=== PATIENT | female | born 1990 | race Caucasian/White ===

== ENCOUNTER 2021-06-03 07:47 | Emergency (ER) | payer OTHER, SELFPAY ==
[2021-06-03 07:54] VITALS: BP 136/79; PULSE 84; RESP 18; TEMP 36.5; O2SAT 100
--- NOTE | 2021-06-03 08:10 | ED.GENADUL_ITS ---
Discharge Plan Disposition Patient Disposition: HOME Condition: Stable Discharge Details Clinical Impression: Laceration of left thigh Primary Care Provider: Unknown,Unknown ED Provider: Manjit Jeffries Home Meds and New Rx's Prescriptions: No Action No Known Home Meds RF: 0 Discharge Instructions Instructions: Laceration (ED) Additional Instructions: Keep wound dressing clean, dry, and intact. Remove dressing in 2 days and examine wound. Change dressing daily thereafter. Be sure to use sterile dressing materials. Monitor for signs of infection including increased warmth, swelling, discharge, drainage, or increasing redness. Please contact your primary care physician to arrange follow-up. Return to the ED or see your doctor for suture removal in 12 days. Return to the ER immediately for any worsening or new concerning symptoms. Medical Decision Making 30-year-old female here with complex laceration left anterior medial thigh. Patient is neurovascular intact distally. Tetanus is up-to-date. Wound was anesthetized with topical lidocaine and local injection of bupivacaine. Wound was explored and does extend deep into adipose tissue, underlying fascia intact. Primary closure was performed without complication, please see procedure note - unable to significantly revise wound margins given tension/lack of tissue. Usual customary discharge instructions were reviewed with the patient. HPI General Mode of arrival: ambulatory . Date/Time Provider Initiated Documentation: 06/03/21 08:04 . Limitations to Documentation: no limitations . Information obtained by: patient . HPI Narrative: 30-year-old female presents after sustaining laceration to her left thigh with chief complaint of laceration. Patient notes that she was preparing for dog sled and dogs broke loose and she jumped on the sled and somehow lacerated her thigh on metal hook that is used to secure dogs. Hook is relatively new and clean. Hook is fully intact. Wound was initially bleeding and bleeding has stopped. Wound is severe. No modifiers. No associated numbness tingling or weakness. The patie nt was able to ambulate without any difficulty after injury. This injury occurred this morning. No other injury sustained. Related Data Home Medications Medication Instructions Recorded Confirmed Unknown [No Known Home Meds] 06/03/21 06/03/21 Allergies Allergy/AdvReac Type Severity Reaction Status Date / Time No Known Allergies Allergy Unverified 06/03/21 08:00 General Stated Complaint: Laceration CECI: 3 Review of Systems Musculoskeletal Musculoskeletal: Denies numbness Integumentary/Breasts Skin/Breast: Reports as per HPI Neurologic Neurologic: Denies numbness PFSH All Active Problems Laceration of left thigh (Acute) Social History Smoking/Tobacco Use Status: Never Smoking risk assessment performed?: Yes Alcohol Intake: current Alcohol Intake frequency: a few times a week Drug use: Never Substance use type: does not use Do you feel safe at home: Yes Do you feel safe in your relationship?: Yes Exam Const General: cooperative and no acute distress Skin Trauma: laceration (complex flap left anterior medial thigh) Extrem Left lower extremity: hip/thigh Details: laceration and other (Normal range of motion, extensor tendon function intact), knee Details: normal to inspection and lower leg Details: normal to inspection Course Vital Signs Vital signs: Vital Signs Temperature 36.5 C 06/03/21 07:54 Pulse 84 06/03/21 07:54 Respiratory Rate 18 06/03/21 07:54 Blood Pressure 136/79 06/03/21 07:54 Pulse Oximetry 100 06/03/21 07:54 Temperature 36.5 C 06/03/21 07:54 Temperature Source Temporal Artery Scan 06/03/21 07:54 Pulse 84 06/03/21 07:54 Respiratory Rate 18 06/03/21 07:54 Respiratory Effort Non-Labored 06/03/21 08:01 Blood Pressure 136/79 06/03/21 07:54 Blood Pressure Position Sitting 06/03/21 07:54 Pulse Oximetry 100 06/03/21 07:54 Oxygen Delivery Method Room Air 06/03/21 07:54 Oxygen Flow Rate 0 06/03/21 07:54 Pain Level 0 06/03/21 07:54 Procedures Laceration Laceration 1: Site: lower extremity Side (If applicable): left Size (cm): 15 Description: stellate and flap Depth: simple, single layer Local Anesthetic: Bupivicaine 0.5% Amount of anesthesia used (mL): 10 Pre-repair: wound explored, irrigated extensively and deep structures intact Skin layer closed with: nylon Size (cm): 4-0 Number of sutures: 19 Technique: simple, interrupted and horizontal mattress PAWSS Have you Been Recently Intoxicated or Drunk Within the Last 30 days?: No Have you Ever Experienced Previous Episodes of Alcohol Withdrawal?: No Have you ever Experienced Withdrawal Seizures?: No Have you ever Experienced Delirium Tremens(DT)s?: No Have you ever undergone Alcohol Rehabilitation Treatment (i.e, inpt ot outpatient treatment programs)?: No Have you ever Experienced Blackouts?: No Have you ever Combined Alcohol with other Downers within the last 90 days?: No Have you ever Combined Alcohol with any other Substance of Abuse during the last 90 days?: No Positive Blood Alcohol level on Presentation? [PCS.BAL]: No Evidence of Increased Autonomic Activity (i.e. HR>120, tremor, sweating, agitation, nausea)?: No Result: 0
[2021-06-03] MEDS: Lidocaine/Epinephri/Tetracaine Topical Gel 3 ML TP (08:18)
[2021-06-03] MEDS: Lidocaine/Epinephri/Tetracaine Topical Gel 3 ML (08:18)
[2021-06-03] MEDS: Bupivacaine 0.5% Pres-Free 30 ML VIAL IJ (08:21)
[2021-06-03 09:54] VITALS: BP 127/54; PULSE 74; RESP 16; O2SAT 96
== END 2021-06-03 09:55 | disposition home or self-care (01) ==
PROVIDERS: Emergency Provider Student in an Organized Health Care Education/Training Program
DX: S71.112A Laceration without foreign body, left thigh, initial encounter (principal); W26.8XXA Contact with other sharp object(s), not elsewhere classified, initial encounter
CPT/HCPCS: 12005

== ENCOUNTER 2021-06-15 10:57 | Emergency (ER) | payer OTHER, SELFPAY ==
[2021-06-15 11:02] VITALS: BP 120/69; PULSE 76; RESP 14; TEMP 37.1; O2SAT 100
--- NOTE | 2021-06-15 12:09 | ED.GENADUL_ITS ---
Discharge Plan Disposition Patient Disposition: HOME Discharge Details Clinical Impression: Visit for wound check Primary Care Provider: Unknown,Unknown ED Provider: Nessa Jeffries Home Meds and New Rx's Prescriptions: No Action No Known Home Meds RF: 0 Discharge Instructions Instructions: Laceration (ED) Additional Instructions: Please return immediately to the emergency department if you develop any new or worsening symptoms, if your condition does not improve as expected, or if you become otherwise concerned. It is extremely important that you return here in 2 days, 06/17/2021, for removal of your sutures. Medical Decision Making Kalina Ogden is a 30 y/o woman without reported medical problems who presente d to the emergency department for suture removal after laceration sustained 06/03/2021 and repaired here. On exam patient is very well and nontoxic- appearing. Anterior medial thigh laceration without discharge, significant erythema, fluctuance, induration, tenderness, or wound dehiscence. Wound healing does not appear entirely complete at this time. Given area is under tension and patient is quite active (Pt plans to go dog sledding today), will hold off on suture removal at this visit. Exam/history at this time is not consistent with abscess, cellulitis, other acute emergent medical condition. Plan for recheck here in 2 days (06/17/2021). Patient is amenable to this plan. I had a discussion with Patient regarding return to emergency department precautions, home care, and importance of ollow-up. Pt verbalizes understanding of the plan and is amenable. Patient discharged to home with clear plan for follow-up. All questions were answered. Disposition decision was made weighing the risks and benefits of hospitalization versus outpatient treatment, the risk for further decompensation, and the patient's wishes. Medical Records Medical records reviewed: Yes I reviewed the patient's medical records. HPI General Mode of arrival: ambulatory . Date/Time Provider Initiated Documentation: 06/15/21 10:59 . Limitations to Documentation: no limitations . Information obtained by: patient, RN notes reviewed and old records reviewed . HPI Narrative: Kalina Ogden is a 30-year-old woman without reported medical problems presenting to emergency department for suture removal. Per record review, patient was seen here 06/03/2021 for complicated left anteromedial thigh laceration sustained from metal puck while dog sledding. Patient reports that she is here for suture removal, has no complaint. She denies discharge or pain at laceration site. She reports small amount of redness surrounding laceration that has been present since injury, unchanged. Denies fever, any other pain, shortness of breath, cough, vomiting, diarrhea, numbness, weakness. Patient reports that she feels very well and that her usual state of health. Related Data Home Medications Medication Instructions Recorded Confirmed Unknown [No Known Home Meds] 06/03/21 06/15/21 Allergies Allergy/AdvReac Type Severity Reaction Status Date / Time No Known Allergies Allergy Unverified 06/15/21 11:06 General Stated Complaint: SutureRem CECI: 4 Review of Systems Narrative: Constitutional: denies fevers Eyes: denies eye pain ENT: denies ear pain, dental pain, sore throat Cardiovascular: denies chest pain Respiratory: denies SOB, cough GI: denies abdominal pain, vomiting, diarrhea : denies flank pain MSK: denies back pain, neck pain, arthralgias, myalgias Skin: denies rash Neuro: denies headaches, numbness, weakness PFSH All Active Problems (Updated 06/15/21 @ 11:18 by Nessa Jeffries MD) Laceration of left thigh (Acute) Visit for wound check (Acute) Social History Smoking/Tobacco Use Status: Never Smoking risk assessment performed?: Yes Alcohol Intake: current Alcohol Intake frequency: a few times a week Drug use: Never Substance use type: does not use Do you feel safe at home: Yes Do you feel safe in your relationship?: Yes Exam Narrative Exam Narrative: Constitutional: well and [id number], pleasant, conv ersing normally HENT: head atraumatic/normocephalic/normal inspection, mucous membranes moist Eyes: conjunctiva normal, sclera normal, pupils 3mm b/l Neck: no stridor, normal ROM, trachea midline Resp: normal work of breathing, speaking in full sentences Cardio: normal rate, normal rhythm Skin: warm, dry, normal color, no rash Neuro: alert, not altered, grossly non-focal, normal tone Ext: Left anteromedial thigh with angular laceration, sutures in place. There is approximately 0.5 cm surrounding erythema that patient reports is unchanged from time of injury. No tenderness to palpation, no induration, no fluctuance, no drainage. Small areas of laceration that appeared to have incomplete skin closure. No dehiscence. Psych: normal mood, normal affect, normal behavior Course Vital Signs Vital signs: Vital Signs Temperature 37.1 C 06/15/21 11:02 Pulse 76 06/15/21 11:02 Respiratory Rate 14 06/15/21 11:02 Blood Pressure 120/69 06/15/21 11:02 Pulse Oximetry 100 06/15/21 11:02 Temperature 37.1 C 06/15/21 11:02 Temperature Source Temporal Artery Scan 06/15/21 11:02 Pulse 76 06/15/21 11:02 Respiratory Rate 14 06/15/21 11:02 Respiratory Effort Non-Labored 06/15/21 11:07 Blood Pressure 120/69 06/15/21 11:02 Blood Pressure Position Sitting 06/15/21 11:02 Pulse Oximetry 100 06/15/21 11:02 Oxygen Delivery Method Room Air 06/15/21 11:02 Oxygen Flow Rate 0 06/15/21 11:02 Pain Level 0 06/15/21 11:02 PAWSS Have you Been Recently Intoxicated or Drunk Within the Last 30 days?: No Have you Ever Experienced Previous Episodes of Alcohol Withdrawal?: No Have you ever Experienced Withdrawal Seizures?: No Have you ever Experienced Delirium Tremens(DT)s?: No Have you ever undergone Alcohol Rehabilitation Treatment (i.e, inpt ot outpatient treatment programs)?: No Have you ever Experienced Blackouts?: No Have you ever Combined Alcohol with other Downers within the last 90 days?: No Have you ever Combined Alcohol with any other Substance of Abuse during the last 90 days?: No Positive Blood Alcohol level on Presentation? [PCS.BAL]: No Evidence of Increased Autonomic Activity (i.e. HR>120, tremor, sweating, agitation, nausea)?: No Result: 0
== END 2021-06-15 11:22 | disposition home or self-care (01) ==
LOC: ER 11:22
PROVIDERS: Emergency Provider Student in an Organized Health Care Education/Training Program
DX: S71.112D Laceration without foreign body, left thigh, subsequent encounter (principal); X58.XXXD Exposure to other specified factors, subsequent encounter

== ENCOUNTER 2021-06-17 12:03 | Emergency (ER) | payer OTHER, SELFPAY ==
[2021-06-17 12:08] VITALS: BP 104/54; PULSE 63; RESP 16; TEMP 36.6; O2SAT 100
--- NOTE | 2021-06-17 12:31 | ED.GENADUL_ITS ---
Discharge Plan Disposition Patient Disposition: HOME Condition: Stable Discharge Details Clinical Impression: Visit for suture removal Primary Care Provider: Unknown,Unknown ED Provider: Mary Shultz Home Meds and New Rx's Prescriptions: No Action No Known Home Meds RF: 0 Discharge Instructions Instructions: Steristrips (ED), Stitches Removal (ED) Additional Instructions: Keep the Steri-Strips in place for the next 5 to 7 days. After approximately 5 days he may slowly peel them off. Keep clean and dry. Follow up with primary care provider in 3-5 days if needed. Return to ED sooner if any worsening redness, red streaks or sign of infection, or concerns. In crease oral fluids. Please take Tylenol or Ibuprofen with food every 4-6 hours as needed for pain a nd swelling. Medical Decision Making 30-year-old female presents to the ER for suture removal. Patient had 19 sutures placed to the left thigh proximal 14 days ago. She was seen here 2 days ago instructed to return in 48 hours. Denies any signs of external drainage. She does have slight erythema surrounding the laceration but this appears to be normal healing. Dr. Garcia assisted with suture removal. There was 1 area with slight dehisc ence the other side of the laceration was well approximated. Steri-Strips applied to reinforce the wound. Discussed home care patient verbalized understanding. This text was generated using JDF dictation system, please disregard any oddities of phrase or misspellings. HPI General Mode of arrival: ambulatory . Date/Time Provider Initiated Documentation: 06/17/21 12:10 . Limitations to Documentation: no limitations . Information obtained by: patient, RN notes reviewed and old records reviewed . HPI Narrative: 30-year-old female presents to the ER for suture removal. Patient had 19 sutures placed to the left thigh proximal 14 days ago. She was seen here 2 days ago instructed to return in 48 hours. Denies any signs of external drainage. She does have slight erythema surrounding the laceration but this appears to be normal healing. Related Data Home Medications Medication Instructions Recorded Confirmed Unknown [No Known Home Meds] 06/03/21 06/17/21 Allergies Allergy/AdvReac Type Severity Reaction Status Date / Time No Known Allergies Allergy Unverified 06/17/21 12:10 General Stated Complaint: SutureRem CECI: 5 Review of Systems Integumentary/Breasts Skin/Breast: Reports wounds (Suture removal) PFSH All Active Problems (Updated 06/17/21 @ 12:34 by Mary Shultz) Laceration of left thigh (Acute) Visit for wound check (Acute) Visit for suture removal (Acute) Social History Smoking/Tobacco Use Status: Never Smoking risk assessment performed?: Yes Alcohol Intake: current Alcohol Intake frequency: a few times a week Drug use: Never Substance use type: does not use Do you feel safe at home: Yes Do you feel safe in your relationship?: Yes Exam Extrem Upper/lower leg/hip images: 1. L-shaped laceration 19 sutures placed. Sutures removed Steri-Strips applied. Slight dehiscence on 1 end of laceration. Course Vital Signs Vital signs: Vital Signs Temperature 36.6 C 06/17/21 12:08 Pulse 63 06/17/21 12:08 Respiratory Rate 16 06/17/21 12:08 Blood Pressure 104/54 L 06/17/21 12:08 Pulse Oximetry 100 06/17/21 12:08 Temperature 36.6 C 06/17/21 12:08 Temperature Source Skin 06/17/21 12:08 Pulse 63 06/17/21 12:08 Respiratory Rate 16 06/17/21 12:08 Respiratory Effort 06/17/21 12:08 Blood Pressure 104/54 L 06/17/21 12:08 Blood Pressure Position Supine 06/17/21 12:08 Pulse Oximetry 100 06/17/21 12:08 Oxygen Delivery Method Room Air 06/17/21 12:08 Oxygen Flow Rate 0 06/17/21 12:08 Pain Level 0 06/17/21 12:08
== END 2021-06-17 12:37 | disposition home or self-care (01) ==
LOC: ER 12:37
PROVIDERS: Emergency Provider Registered Nurse Emergency
DX: S71.112D Laceration without foreign body, left thigh, subsequent encounter (principal); W26.8XXD Contact with other sharp object(s), not elsewhere classified, subsequent encounter; Z48.02 Encounter for removal of sutures

== ENCOUNTER 2021-06-28 12:29 | Emergency (ER) | payer OTHER, SELFPAY ==
[2021-06-28 12:32] VITALS: BP 114/72; PULSE 76; RESP 16; TEMP 36.7; O2SAT 99
--- NOTE | 2021-06-28 12:45 | DI.RAD_ITS ---
Exam(s) XR HAND LT COMPLETE EXAM: XR HAND LT COMPLETE CLINICAL HISTORY: dog bite. TECHNIQUE: 2D digital imaging was performed. COMPARISON: No exams were available for comparison FINDINGS: No evidence of fracture nor subluxation. No radiopaque foreign body. No osseous lesions nor erosion s. No radiographic evidence of osteomyelitis. Bone density is normal. IMPRESSION: No significant radiographic findings in the left hand. DATA REPOSITORY: RADIATION DOSE DELIVERED:
--- NOTE | 2021-06-28 13:08 | NUR.NOTE ---
Nursing Note: Pt to DI for xray & returned, NAD, no active bleeding, provider w/pt cleansing and repairing bite area to left hand.
--- NOTE | 2021-06-28 13:29 | ED.GENADUL_ITS ---
Discharge Plan Disposition Patient Disposition: HOME Condition: Good Discharge Details Clinical Impression: Dog bite Primary Care Provider: Unknown,Unknown ED Provider: Patience Walker Home Meds and New Rx's Prescriptions: New amoxicillin-pot clavulanate 875-125 mg tablet 1 tab PO BID Qty: 10 0RF Discharge Instructions Instructions: Animal Bite (ED) Additional Instructions: Keep wound clean and dry Try to keep immobilized as much as possible suture removal in 8 to 10 days Take the antibiotic as prescribed Yogurt daily while on antibiotic Return spreading redness, fever, worsening pain Discharge Data Discharge Date/Time-TO BE ENTERED AT DEPARTURE: 06/28/21 13:43 Medical Decision Making Long discussion regarding risk benefits of suture placement with dog bites and risk of infection, patient consented to be at risk and 1 vertical mattress suture was placed, she will need this removed and 8 to 10 days Wound was irrigated copiously Patient with Augmentin for prophylaxis, only 5-day course She was given the first dose in the emergency room Tetanus is up-to-date and dog bite with reported No indication for rabies Vaccinated and patient's own Return precautions discussed and patient expressed understanding, remains neurovascularly intact throughout encounter Dressings applied by me Medical Records Medical records reviewed: Yes I reviewed the patient's medical records. HPI General Date/Time Provider Initiated Documentation: 06/28/21 12:36 . HPI Narrative: This 30-year-old female presents with report of laceration to left hand. States she broke up a dog fight with her own dogs. Dogs are up-to-date on rabies. De nies any strength or sensation change. Denies any additional complaints at this time. States this occurred just prior to arrival. Tetanus is reportedly up-to-date. Related Data Home Medications Medication Instructions Recorded Confirmed amoxicillin 875 mg-potassium 1 tab PO BID #10 tab 06/28/21 clavulanate 125 mg tablet Previous Rx's Medication Instructions Recorded amoxicillin 875 mg-potassium 1 tab PO BID #10 tab 06/28/21 clavulanate 125 mg tablet Allergies Allergy/AdvReac Type Severity Reaction Status Date / Time No Known Allergies Allergy Unverified 06/28/21 12:37 General Stated Complaint: AnimalBite CECI: 4 Review of Systems All systems reviewed & are unremarkable except as noted in HPI and below PFSH All Active Problems (Updated 06/28/21 @ 13:31 by ZHENG Venegas) Laceration of left thigh (Acute) Visit for wound check (Acute) Visit for suture removal (Acute) Dog bite (Acute) Social History Smoking/Tobacco Use Status: Never Smoking risk assessment performed?: Yes Alcohol Intake: current Alcohol Intake frequency: a few times a week Drug use: Never Substance use type: does not use Do you feel safe at home: Yes Do you feel safe in your relationship?: Yes Exam Const General: cooperative, comfortable and no acute distress Extrem Hand/finger images: 1. 1 inch laceration 2. Small abrasion noted 3. Small abrasion noted Other: Neurovascularly intact, Range of motion and strength intact all 5 digits Course Vital Signs Vital signs: Vital Signs Temperature 36.7 C 06/28/21 12:32 Pulse 76 06/28/21 12:32 Respiratory Rate 16 06/28/21 12:32 Blood Pressure 114/72 06/28/21 12:32 Pulse Oximetry 99 06/28/21 12:32 Temperature 36.7 C 06/28/21 12:32 Temperature Source Skin 06/28/21 12:32 Pulse 76 06/28/21 12:32 Respiratory Rate 16 06/28/21 12:32 Respiratory Effort 06/28/21 12:32 Blood Pressure 114/72 06/28/21 12:32 Blood Pressure Position Sitting 06/28/21 12:32 Pulse Oximetry 99 06/28/21 12:32 Oxygen Delivery Method Room Air 06/28/21 12:32 Oxygen Flow Rate 0 06/28/21 12:32 Pain Level 6 06/28/21 12:32 Procedures Laceration Laceration 1: Site: hand Size (cm): 2.5 Description: linear Depth: simple, single layer Local Anesthetic: Lidocaine 1% Amount of anesthesia used (mL): 2 Pre-repair: wound explored Skin layer closed with: nylon Size (cm): 4-0 Number of sutures: 1 Technique: other (vertical mattress)
[2021-06-28] MEDS: Amoxicillin 875/Clav. 125 TAB PO (13:37)
--- NOTE | 2021-06-28 13:37 | NUR.NOTE ---
Animal bite report form faxed to [facility] Clerk and Maxim Valentino at his place of work at his request at [employer] [facility]. Spoke with Maxim Thornton and he is aware of the report. Sherry Guzman Nursing Note:
== END 2021-06-28 13:43 | disposition home or self-care (01) ==
PROVIDERS: Emergency Provider Physician Assistant
DX: S61.451A Open bite of right hand, initial encounter (principal); W54.0XXA Bitten by dog, initial encounter
CPT/HCPCS: 12001; 73130